=== PATIENT | male | born 1990 | race Two or more races ===

== ENCOUNTER 2018-04-13 22:58 | Emergency (ER) | payer MEDICAID, SELFPAY ==
[~2018-04-13] VITALS: Ht 180.3 cm; Wt 136.0 kg
[2018-04-13 23:00] VITALS: BP 148/88
== END 2018-04-13 23:42 | disposition home or self-care (01) ==
LOC: ED 23:25
DX: H72.92 Unspecified perforation of tympanic membrane, left ear (principal); H60.509 Unspecified acute noninfective otitis externa, unspecified ear
CPT/HCPCS: 99283